=== PATIENT | female | born 1955 | race Caucasian/White ===

== ENCOUNTER 2022-09-26 14:46 | Emergency (ER) | payer MEDICARE, MEDICAID ==
[~2022-09-26] VITALS: Ht 137.2 cm; Wt 90.7 kg
--- NOTE | 2022-09-26 14:47 | NUR ---
PT BROUGHT IN BY [facility], TRIAGED, AWAITING ER BED ASSIGNMENT.
--- NOTE | 2022-09-26 15:02 | NUR ---
TAKEN TO ROOM #8 AND REPORT GIVEN TO JAE
[2022-09-26 15:04] VITALS: BP_SYST 139
--- NOTE | 2022-09-26 15:48 | NUR ---
FAMILY ARRIVED TO HOSPITAL, MORE INFORMATION RECEIVED.
--- NOTE | 2022-09-26 15:59 | NUR ---
PT BIBA AWAKE AND ALERT. AOX1. NO SOB OR DISTRESS. PT DENIES PAIN, N/V. PT DAUGHTER CALLED 911 AFTER TALKING TO PT ON PHONE AND NOTICED SLURRED SPEECH . NO FACIAL DROOP, NO WEAKNESS.
--- NOTE | 2022-09-26 16:02 | NUR ---
MD DR MI AT BEDSIDE
--- NOTE | 2022-09-26 16:30 | NUR ---
[address]
[2022-09-26 17:07] LABS: BASOPHILS % (AUTO) 0.3 % (0.0-2.0); EOSINOPHILS # (AUTO) 0.1 K/uL (0.0-0.4); EOSINOPHILS % (AUTO) 0.6 % (0.0-4.0); HEMATOCRIT 38.4 % (36-48); LYMPHOCYTES # (AUTO) 2.5 K/uL (1.0-5.5); LYMPHOCYTES % (AUTO) 22.7 % (20.5-51.5); MEAN CORPUSCULAR HEMOGLOBIN 29 pg (27-31); MEAN CORPUSCULAR HGB CONC 34 % (32-36); MEAN CORPUSCULAR VOLUME 86 fL (79.0-98.0); MONOCYTES # (AUTO) 0.8 K/uL (0.0-1.0); MONOCYTES % (AUTO) 7.3 % (1.7-9.3); NEUTROPHILS # (AUTO) 7.5 K/uL (1.8-7.7); NEUTROPHILS % (AUTO) 69.1 % (40.0-70.0); PLATELET COUNT (AUTO) 252 K/uL (130-430); RED BLOOD CELL COUNT(AUTO) 4.49 MIL/uL (4.2-6.2); RED CELL DISTRIBUTION WIDTH 14.1 % (9.0-15.0); WHITE BLOOD COUNT (AUTO) 10.8 K/uL (4.8-10.8)
[2022-09-26 17:11] LABS: BILIRUBIN,URINE NEGATIVE (NEGATIVE); BLOOD, URINE NEGATIVE (NEGATIVE); CLARITY/URINE CLEAR (CLEAR); COLOR,URINE YELLOW (YELLOW); GLUCOSE,URINE 2+ (NEGATIVE); KETONES,URINE NEGATIVE (NEGATIVE); LEUKOCYTE ESTERASE ,URINE NEGATIVE (NEGATIVE); NITRITE, URINE NEGATIVE (NEGATIVE); PROTEIN URINE NEGATIVE (NEGATIVE); UROBILINOGEN,URINE 0.2 (0.2-1.0)
[2022-09-26 17:22] LABS: ANION GAP 8 (5-15); CALCIUM 8.8 mg/dL (8.4-11.0); CHLORIDE 102 mmol/L (98-107); GLUCOSE 71 mg/dL (70-99); UREA NITROGEN, BLOOD 10 mg/dL (8-21)
[2022-09-26 17:23] LABS: GFR AFRICAN AMERICAN 91 mL/min (>90)
[2022-09-26 17:24] LABS: BARBITURATE, URINE NEGATIVE (NEG <=200); BENZODIAZEPINE, URINE NEGATIVE (NEG <=150); CANNABINOID, URINE NEGATIVE (NEG <=50); COCAINE, URINE NEGATIVE (NEG <=150); METHAMPHETAMINES SCREEN,URINE NEGATIVE (NEG <=500); OPIATE, URINE NEGATIVE (NEG <=100); PHENCYCLIDINE SCREEN,URINE NEGATIVE (NEG <=25); UR TRICYCLIC ANTIDEPRESSANTS NEGATIVE (NEG <=300); URINE AMPHETAMINE NEGATIVE (NEG <=500); URINE METHADONE NEGATIVE (NEG <=200); URINE OXYCODONE SCREEN NEGATIVE (NEG <=100); URINE PROPOXYPHENE SCREEN NEGATIVE (NEG <=300)
[2022-09-26 17:29] LABS: INR 0.9 (0.8-1.2); PROTHROMBIN TIME 9.3 SECS (9.5-12.5)
--- NOTE | 2022-09-26 17:32 | NUR ---
TRANSFER INFO [facility] DR[facility] ZAMORA [phone] [facility] ETA 1756 SPOKE TO KIKA
[2022-09-26 17:33] LABS: ALANINE AMINOTRANSFERASE 28 U/L (12-78); ALBUMIN 3.6 g/dL (3.4-4.8); ASPARTATE AMINOTRANSFERASE 18 U/L (10-37); TOTAL BILIRUBIN 0.2 mg/dL (0.0-1.0)
--- NOTE | 2022-09-26 18:05 | NUR ---
Patient to be transferred to [facility]. Is being transferred due to higher level of care. Receiving facility has accepting physician and available space. ER physician has signed transfer form. Patient or responsible democrat has agreed to transfer and signed form. Patient belongings inventoried and will be sent with patient. Copy of nursing notes, lab reports, EKG, Physicians Orders and X-rays to be sent with patient. Report called to HILDA at receiving facility. Receiving physician is DR ZAMORA. [facility] ambulance service has been called for transfer. ETA is 1800.
[2022-09-26 18:07] VITALS: BP_SYST 169
== END 2022-09-26 18:07 | disposition short-term general hospital (02) ==
LOC: SED 14:46
DX: I62.9 Nontraumatic intracranial hemorrhage, unspecified (principal); R41.82 Altered mental status, unspecified; E11.9 Type 2 diabetes mellitus without complications; I10 Essential (primary) hypertension; E78.5 Hyperlipidemia, unspecified; Z79.899 Other long term (current) drug therapy; Z20.822 Contact with and (suspected) exposure to COVID-19
CPT/HCPCS: 36415; 70450-TC; 76376; 80048; 80053; 80307; 81003; 82962; 84484; 85025; 85610-TC; 85730-TC; 99291